=== PATIENT | male | born 1965 | race Hispanic/Latino ===

== ENCOUNTER 2020-05-12 20:31 | Emergency (ER) | payer OTHER ==
[~2020-05-12] VITALS: Ht 172.7 cm; Wt 75.3 kg
[2020-05-12] MEDS ORDERED: FAMOTIDINE 20 MG/2 ML VIAL IV STA (21:12)
[2020-05-12] MEDS ORDERED: DIPHENHYDRAMINE HCL INJ 50 MG/ML VIAL IV ONE (21:15)
[2020-05-12] MEDS ORDERED: METHYLPREDNISOLONE SOD SUCC 125 MG/2ML VIAL IV ONE (21:15)
[2020-05-12] MEDS ORDERED: DIPHENHYDRAMINE HCL INJ 50 MG/ML VIAL ONE (21:19)
[2020-05-12] MEDS ORDERED: METHYLPREDNISOLONE SOD SUCC 125 MG/2ML VIAL ONE (21:19)
[2020-05-12] MEDS ORDERED: FAMOTIDINE 20 MG/2 ML VIAL IV ONE (21:19)
[2020-05-12] MEDS ORDERED: PREDNISONE20 MG PO (21:44)
[2020-05-12] MEDS ORDERED: FAMOTIDINE20 MG PO (21:45)
== END 2020-05-12 22:01 | disposition home or self-care (01) ==
LOC: FSED 20:45
DX: L27.0 Generalized skin eruption due to drugs and medicaments taken internally (principal); T36.95XA Adverse effect of unspecified systemic antibiotic, initial encounter; L29.9 Pruritus, unspecified; G80.9 Cerebral palsy, unspecified
CPT/HCPCS: 99283; J1200; J2930